=== PATIENT | male | born 1990 | race Caucasian/White ===

== ENCOUNTER 2017-06-28 14:06 | Emergency (ER) | payer BC, OTHER ==
--- NOTE | 2017-06-28 14:10 | PDOC ---
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 The patient states he was moving a love seat yesterday when he felt a pull to his lower back causing him to hunch over secondary to the pain. The patient reports taking Advil before bed last night with little relief of pain. He states he was concerned when his pain was less diffuse when he woke up today. He states the pain was diffuse to his lower back yesterday, however, reports the pain has remained to the lumbar region, however, more prominent to his midline with radiation to his left lower back today. He reports his pain is a constant 6/10 in severity and exacerbated when he has to get up from bending or sitting down. The patient states he finds walking around alleviates his pain slightly. He denies numbness, tingling, or weakness to to his distal lower extremities. He denies chest pain, shortness of breath, headache and dizziness. He denies fever, chills, nausea, vomit, diarrhea and constipation. He denies dysuria, frequency, urgency and hematuria. He denies urinary or fecal incontinence. Allergies: NKDA Past surgical history: none reported Social history: Pt denies tobacco use <Berta Rowley - Last Filed: 06/28/17 15:24> <Yordan Delgado - Last Filed: 06/28/17 15:26> - General Chief Complaint: Injury Stated Complaint: LOWER BACK PAIN Time Seen by Provider: 06/28/17 14:09 Past History <Berta Rowley - Last Filed: 06/28/17 15:24> - Immunization History Immunization Up to Date: Yes - Suicide/Smoking/Psychosocial Hx Smoking Status: No Smoking History: Never smoked Number of Cigarettes Smoked Daily: 0 Hx Alcohol Use: No Substance Use Type: None <Yordan Delgado - Last Filed: 06/28/17 15:26> - Past Medical History Allergies/Adverse Reactions: Allergies Allergy/AdvReac Type Severity Reaction Status Date / Time No Known Allergies Allergy Verified 06/28/17 14:07 Home Medications: Ambulatory Orders No Home Medications 0 dose .ROUTE UTDICT 02/21/13 Cyclobenzaprine HCl [Flexeril] 10 mg PO TID #15 tablet 06/28/17 Ibuprofen 800 mg PO TID #20 tablet 06/28/17 Trauma Specific PMHX - Complaint Specific PMHX Arthritis: No Back Injury: No Neck Injury: No Hx Sacro Iliac Joint Dysfunction: No <Yordan Delgado - Last Filed: 06/28/17 15:26> Review of Systems - Review of Systems Able to Perform ROS?: Yes Comments:: 06/28/17 14:30 CONSTITUTIONAL: Absent: fever, chills, diaphoresis, generalized weakness, malaise, loss of appetite HEENT: Absent: rhinorrhea, nasal congestion, throat pain, throat swelling, difficulty swallowing, mouth swelling, ear pain, eye pain, visual Changes CARDIOVASCULAR: Absent: chest pain, syncope, palpitations, irregular heart rate, lightheadedness , peripheral edema RESPIRATORY: Absent: cough, shortness of breath, dyspnea with exertion, orthopnea, wheezing, stridor, hemoptysis GASTROINTESTINAL: Absent: abdominal pain, abdominal distension, nausea, vomiting, diarrhea, constipation, melena, hematochezia GENITOURINARY: Absent: dysuria, frequency, urgency, hesitancy, hematuria, flank pain, genital pain MUSCULOSKELETAL: (+) low back pain. Absent: arthralgia, joint swelling SKIN: Absent: rash, itching, pallor HEMATOLOGIC/IMMUNOLOGIC: Absent: easy bleeding, easy bruising, lymphadenopathy, frequent infections ENDOCRINE: Absent: unexplained weight gain, unexplained weight loss, heat intolerance, cold intolerance NEUROLOGIC: Absent: headache, focal weakness or paresthesia, dizziness, unsteady gait, seizure, mental status changes, bladder or bowel incontinence PSYCHIATRIC: Absent: anxiety, depression, suicidal or homicidal ideation, hallucinations <Berta Rowley - Last Filed: 06/28/17 15:24> *Physical Exam - Vital Signs Last Vital Signs Temp Pulse Resp BP Pulse Ox 98.3 F 90 20 143/93 96 06/28/17 14:07 06/28/17 14:07 06/28/17 14:07 06/28/17 14:07 06/28/17 14:07 - Physical Exam Comments: 06/28/17 14:31 GENERAL: Well developed, well nourished. Awake and alert. No acute distress. HEENT: Normocephalic, atraumatic. PERRLA, EOMI. No conjunctival pallor. Sclera are non- icteric. Moist mucous membranes. Oropharynx is clear. NECK: Supple. Full ROM. No JVD. Carotid pulses 2+ and symmetric, without bruits. No thyromegaly. No lymphadenopathy. CARDIOVASCULAR: Regular rate and rhythm. No murmurs, rubs, or gallops. Distal pulses are 2+ and symmetric. PULMONARY: No evidence of respiratory distress. Lungs clear to auscultation bilaterally. No wheezing, rales or rhonchi. ABDOMINAL: Soft. Non-tender. Non-distended. No rebound or guarding. No organomegaly. Normoactive bowel sounds. MUSCULOSKELETAL (+) straightening of the normal lumbar lordosis with b/l paravertebral muscle spasm. No point tenderness or deformity of the vertebral bodies. Straight leg raising is negative. No muscle weakness in either lower extremity. Full pulses and no sensory deficits to the lower extremities. Normal range of motion at all joints. No midline tenderness or bony deformities. No CVA tenderness. EXTREMITIES: No cyanosis. No clubbing. No edema. No calf tenderness. SKIN: Warm and dry. Normal capillary refill. No rashes. No jaundice. NEUROLOGICAL: Alert, awake, appropriate. Cranial nerves 2-12 intact. No motor deficits in the upper extremities and lower extremities. Normoreflexic in the upper and lower extremities. Normal speech. Gait is normal without ataxia. PSYCHIATRIC: Cooperative. Good eye contact. Appropriate mood and affect. <Berta Rowley - Last Filed: 06/28/17 15:24> Medical Decision Making - Medical Decision Making 06/28/17 15:21 Patient with low back strain. No radicular symptoms. Normal bowel and bladder function. Normal exam except for signs of muscle spasm in the LS spine. Symptomatic treatment and follow-up as needed. Fully ambulatory and in no severe pain or other distress upon discharge to follow-up as directed <Yordan Delgado - Last Filed: 06/28/17 15:26> *DC/Admit/Observation/Transfer - Attestations Scribe Attestion: 06/28/17 14:32 Documentation prepared by Berta Rowley, acting as medical record administrator for Yordan Chaudhry MD <Berta Rowley - Last Filed: 06/28/17 15:24> - Discharge Dispostion Admit: No <Yordan Delgado - Last Filed: 06/28/17 15:26> Diagnosis at time of Disposition: Pain, low back Qualifiers: Chronicity: acute Back pain laterality: left Sciatica presence: without sciatica Qualified Code(s): M54.5 - Low back pain - Discharge Dispostion Disposition: HOME Condition at time of disposition: Improved - Prescriptions Prescriptions: Cyclobenzaprine HCl [Flexeril] 10 mg PO TID #15 tablet Ibuprofen 800 mg PO TID #20 tablet - Referrals Referrals: Javier Blackwell MD [Staff Physician] - 1 week - Patient Instructions Printed Discharge Instructions: DI for Low Back Pain - Post Discharge Activity Forms/Work/School Notes: Back to Work
[2017-06-28 14:26] VITALS: BP 143/93; PULSE 90; TEMP 98.3; BMI 32.5
[2017-06-28] MEDS ORDERED: KETOROLAC TROMETHAMINE 60 MG/2 ML VIAL IM ONE (14:39)
[2017-06-28] MEDS ORDERED: CYCLOBENZAPRINE HCL 10 MG TABLET (FP) PO ONE (14:39)
[2017-06-28] MEDS ORDERED: KETOROLAC TROMETHAMINE 60 MG/2 ML VIAL ONE (14:56)
[2017-06-28] MEDS ORDERED: CYCLOBENZAPRINE HCL 10 MG TABLET (FP) ONE (14:57)
== END 2017-06-28 15:20 | disposition home or self-care (01) ==
LOC: FER 14:06
PROC: 3E0233Z Introduction of Anti-inflammatory into Muscle, Percutaneous Approach (ICD-10-PCS; principal; 2017-06-28)
DX: M54.5 Low back pain (principal)
CPT/HCPCS: 99281-25

== ENCOUNTER 2017-08-16 10:55 | Observation (INO) | payer BC, OTHER ==
[2017-08-16 11:02] VITALS: BMI 32.0
[2017-08-16] MEDS ORDERED: METOPROLOL TARTRATE 5 MG/5 ML VIAL ONE (11:08)
[2017-08-16] MEDS ORDERED: METOPROLOL TARTRATE 5 MG/5 ML VIAL IVPUSH ONE (11:16)
--- NOTE | 2017-08-16 11:35 | PDOC ---
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 Patient states a few minutes prior to the onset he smelled a noxious fume and then minutes later developed a feeling of uneasiness followed by palpitations. Patient denies cardiac history, thyroid disorders, drug use, heat or cold intolerance, weight change, recent surgery, smoking history, recent change in diet or recent illness. Patient denies chest pain, shortness of breath, nausea, or dizziness since onset. Presenting Symptoms: Other (palpitations) Timing/Duration: reports: constant Severity/Quality: reports: mild Chest Pain Radiation: reports: no radiation Prior Chest Pain/Cardiac Workup: reports: No prior chest pain Modifying Factors: improves with: movement (improve with standing), other Beta Rosibel indicated at this time? (Core Measure): Yes Associated Symptoms: Yes: Palpitations Past History - Travel Traveled outside of the country in the last 30 days: No - Past Medical History Allergies/Adverse Reactions: Allergies Allergy/AdvReac Type Severity Reaction Status Date / Time No Known Allergies Allergy Verified 08/16/17 11:00 Home Medications: Ambulatory Orders No Home Medications 0 dose .ROUTE UTDICT 02/21/13 COPD: No - Immunization History Immunization Up to Date: Yes - Suicide/Smoking/Psychosocial Hx Smoking Status: No Smoking History: Never smoked Have you smoked in the past 12 months: No Number of Cigarettes Smoked Daily: 0 Information on smoking cessation initiated: No Hx Alcohol Use: No Drug/Substance Use Hx: No Substance Use Type: None Patient Lives Alone: No Lives with/in: parents Review of Systems - Review of Systems Able to Perform ROS?: Yes Constitutional: No: Symptoms Reported HEENTM: No: Symptoms Reported Respiratory: No: Symptoms reported Cardiac (ROS): Yes: Palpitations. No: Chest Tightness ABD/GI: No: Symptoms Reported : No: Symptoms Reported Musculoskeletal: No: Symptoms Reported Integumentary: No: Symptoms Reported Neurological: No: Symptoms reported Endocrine: No: Symptoms Reported Hematologic/Lymphatic: No: Symptoms Reported *Physical Exam - Vital Signs Last Vital Signs Temp Pulse Resp BP Pulse Ox 97.8 F 77 18 109/82 100 08/16/17 11:01 08/16/17 12:30 08/16/17 12:30 08/16/17 12:30 08/16/17 12:30 - Physical Exam General Appearance: Yes: Nourished, Appropriately Dressed. No: Apparent Distress HEENT: positive: EOMI, EMMANUELLE, Pharynx Normal. negative: Pale Conjunctivae Neck: positive: Normal Thyroid, Supple Respiratory/Chest: positive: Lungs Clear, Normal Breath Sounds. negative: Respiratory Distress Cardiovascular: positive: Tachycardia. negative: Murmur Vascular Pulses: Dorsalis-Pedis (R): 2+, Doralis-Pedis (L): 2+ Gastrointestinal/Abdominal: positive: Soft. negative: Tenderness Integumentary: positive: Normal Color, Warm, Clammy Neurologic: positive: Normal Mood/Affect (mildly anxious), Motor Strength 5/5 ( ambulatory) Deep Tendon Reflexes: Knee (L): 2+, Knee (R): 2+ Heart Score/ECG Review - History History: Slightly suspicious - Electrocardiogram EKG: Normal - Age Age: </= 45 - Risk Factors Based on the list above the patient has:: No risk factors known - Troponin Troponin: </= normal limit - Score Heart Score - Total: 0 #2 General ECG Interpretation: Sinus Rhythm (rate 73, nsr, No st elevation or depression noted) - ECG Impressions Tachycardia: Atrial Flutter (rate 165.) ED Treatment Course - LABORATORY CBC & Chemistry Diagram: 08/16/17 11:30 08/16/17 11:30 - ADDITIONAL ORDERS Additional order review: Laboratory Results 08/16/17 08/16/17 08/16/17 11:54 11:41 11:41 PT with INR 10.50 INR 0.93 Carboxyhemoglobin 2.1 H Sodium Potassium Chloride Carbon Dioxide Anion Gap BUN Creatinine Creat Clearance w eGFR Random Glucose Calcium Total Bilirubin AST ALT Alkaline Phosphatase Creatine Kinase Creatine Kinase Index CK-MB (CK-2) Troponin I Total Protein Albumin TSH 1.58 08/16/17 11:30 PT with INR INR Carboxyhemoglobin Sodium 137 Potassium 3.8 Chloride 102 Carbon Dioxide 27 Anion Gap 8 BUN 18 Creatinine 1.2 D Creat Clearance w eGFR > 60 Random Glucose 92 Calcium 9.2 Total Bilirubin 0.7 AST 36 D ALT 47 D Alkaline Phosphatase 76 Creatine Kinase 431 H Creatine Kinase Index 0.4 CK-MB (CK-2) 2.101 Troponin I < 0.02 Total Protein 8.3 H Albumin 4.4 TSH 08/16/17 11:30 RBC 5.59 MCV 90.5 MCHC 33.3 RDW 12.9 MPV 9.3 Neutrophils % 56.7 Lymphocytes % 33.8 D Monocytes % 8.1 Eosinophils % 1.1 Basophils % 0.3 - RADIOLOGY Radiology Studies Ordered: Category Date Time Status CHEST X-RAY PORTABLE* [RAD] Stat Radiology 08/16/17 11:16 Completed - Medications Given in the ED: ED Medications Discontinued Medications Generic Name Dose Route Start Last Admin Trade Name Freq PRN Reason Stop Dose Admin Metoprolol Tartrate 5 mg 08/16/17 11:16 08/16/17 11:20 Lopressor Injection - IVPUSH 08/16/17 11:17 5 mg ONCE ONE Administration Medical Decision Making - Critical Care Time Total Critical Care Time (minutes): 45 Critical Care Statement: The care of this patient involved high complexity decision making to prevent further life threatening deterioration of the patient 's condition and/or to evaluate & treat vital organ system(s) failure or risk of failure. 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 Patient states this assisted with moving of body near the morgue on [address] and had inhaled noxious fumes minutes prior to onset. Patient arrives tachycardic mildly anxious, and slightly diaphoretic to his arms. Patient was immediately placed on surveillance system monitor. Patient instructed to bear down to perform vasovagal maneuver but continued to be in a flutter in the 160s. I placed a #18-gauge needle into the patient's left antecubital labs were drawn immediately and patient was administered 5 mg of Lopressor IV push at 1108. Patient within 4 minutes went to normal sinus rhythm with a rate of 85. Patient intermittently since administration of Lopressor will go into sinus bradycardia at 45 with complaints of mild lethargy. Patient without intervention will return to normal sinus rhythm anywhere from mid 70s to mid 80s. Patient has no complaints presently. Cardiac workup including TSH was sent. Patient also remains on 2 L of nasal cannula satting at 100%. A carboxyhemoglobin was also sent secondary to the noxious fume complaint upon onset. 08/16/17 13:18 Laboratory Tests 08/16/17 08/16/17 08/16/17 11:30 11:30 11:41 WBC 8.0 Hgb 16.9 Hct 50.6 H Plt Count 236 Neutrophils % 56.7 INR Carboxyhemoglobin Sodium 137 Potassium 3.8 Chloride 102 Carbon Dioxide 27 Anion Gap 8 BUN 18 Creatinine 1.2 D Random Glucose 92 Calcium 9.2 Total Bilirubin 0.7 Creatine Kinase 431 H Troponin I < 0.02 Total Protein 8.3 H TSH 1.58 08/16/17 08/16/17 11:41 11:54 WBC Hgb Hct Plt Count Neutrophils % INR 0.93 Carboxyhemoglobin 2.1 H Sodium Potassium Chloride Carbon Dioxide Anion Gap BUN Creatinine Random Glucose Calcium Total Bilirubin Creatine Kinase Troponin I Total Protein TSH Patient's heart rate continues to fluctuate anywhere from 48-82. BP within normal limits. Patient remains asymptomatic and has no complaints presently. Case discussed with hospitalist and will admit to telemetry out. Consult also placed for Dr. Edgar program director group work and echocardiogram was ordered. 08/16/17 13:[address] Edgar and states will consult either later this evening or first thing tomorrow morning and will review echo. 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 hr 50-80s. 08/16/17 16:51 Laboratory Tests 08/16/17 16:00 Troponin I < 0.02 *DC/Admit/Observation/Transfer Diagnosis at time of Disposition: New onset atrial flutter - Discharge Dispostion Admit: Yes - Referrals - Patient Instructions - Post Discharge Activity
[2017-08-16 12:02] LABS: BASO % 0.3 % (0-2.0); EOS % 1.1 % (0-4.5); HEMATOCRIT 50.6 % (35.4-49); HEMOGLOBIN 16.9 GM/dL (11.7-16.9); LYMPH % 33.8 % (8-40); MCH 30.2 pg (25.7-33.7); MCHC 33.3 g/dl (32.0-35.9); MEAN CELL VOLUME 90.5 fl (80-96); MEAN PLT VOLUME 9.3 fl (7.5-11.1); MONO % 8.1 % (3.8-10.2); NEUT % 56.7 % (42.8-82.8); PLATELET COUNT 236 K/MM3 (134-434); RBC 5.59 M/mm3 (4.00-5.60); RDW 12.9 % (11.9-15.9)
[2017-08-16 12:14] LABS: ALBUMIN 4.4 g/dl (3.4-5.0); ANION GAP 8 (8-16); BILIRUBIN,TOTAL 0.7 mg/dL (0.2-1.0); BLOOD UREA NITROGEN 18 mg/dL (7-18); CALCIUM 9.2 mg/dL (8.5-10.1); CHLORIDE 102 mmol/L (98-107); CO2 27 mmol/L (21-32); CREATININE 1.2 mg/dL (0.7-1.3); GLUCOSE,RANDOM 92 mg/dL (74-106); POTASSIUM 3.8 mmol/L (3.5-5.1); SGOT/AST 36 U/L (15-37); SGPT/ALT 47 U/L (12-78); SODIUM 137 mmol/L (136-145); TOT PROT 8.3 g/dl (6.4-8.2)
[2017-08-16 12:17] LABS: ALK PHOS 76 U/L (45-117)
[2017-08-16 13:08] LABS: INR 0.93 (0.82-1.09); PROTHROMBIN TIME (PATIENT) 10.5 SEC (9.98-11.88)
--- NOTE | 2017-08-16 15:00 | HP ---
CHIEF COMPLAINT: palpitations PCP: Rafi HISTORY OF PRESENT ILLNESS: This is a 27-year-old male without significant past medical history presents to emergency department with sudden onset of palpitations while walking slowly. On arrival to the ED patient found a heart rate in the 170s. Patient states approximately one hour prior to feeling palpitations here brief episode of dizziness while at rest. Patient states he was walking the [place]ay where there was a noxious gas smell at the time the palpitations started. He noticed a time then released feeling diaphoretic. He denies any fevers, chills, chest pain, shortness of breath, abdominal pain, nausea, vomiting. ER course was notable for: (1) EKG- Aflutter at 165 (2) carboxyhemoglobin- 2.1 Recent Travel: denies PAST MEDICAL HISTORY: see HPI PAST SURGICAL HISTORY: see HPI Social History: Smoking: denies Alcohol: denies Drugs: denies Family History: Allergies No Known Allergies Allergy (Verified 08/16/17 11:00) HOME MEDICATIONS: Home Medications Medication Instructions Recorded No Home Medications 0 dose .ROUTE UTDICT 02/21/13 REVIEW OF SYSTEMS CONSTITUTIONAL: Present- diaphoresis Absent: fever, chills, generalized weakness, malaise, loss of appetite, weight change HEENT: Absent: rhinorrhea, nasal congestion, throat pain, throat swelling, difficulty swallowing, mouth swelling, ear pain, eye pain, visual changes CARDIOVASCULAR: Present- palpitations Absent: chest pain, syncope, irregular heart rate, lightheadedness, peripheral edema RESPIRATORY: Absent: cough, shortness of breath, dyspnea with exertion, orthopnea, wheezing, stridor, hemoptysis GASTROINTESTINAL: Absent: abdominal pain, abdominal distension, nausea, vomiting, diarrhea, constipation, melena, hematochezia GENITOURINARY: Absent: dysuria, frequency, urgency, hesitancy, hematuria, flank pain, genital pain MUSCULOSKELETAL: Absent: myalgia, arthralgia, joint swelling, back pain, neck pain SKIN: Absent: rash, itching, pallor HEMATOLOGIC/IMMUNOLOGIC: Absent: easy bleeding, easy bruising, lymphadenopathy, frequent infections ENDOCRINE: Absent: unexplained weight gain, unexplained weight loss, heat intolerance, cold intolerance NEUROLOGIC: Absent: headache, focal weakness or paresthesias, dizziness, unsteady gait, seizure, mental status changes, bladder or bowel incontinence PSYCHIATRIC: Absent: anxiety, depression, suicidal or homicidal ideation, hallucinations. PHYSICAL EXAMINATION Vital Signs - 24 hr 08/16/17 08/16/17 08/16/17 11:01 11:20 11:30 Temperature 97.8 F Pulse Rate 158 H Pulse Rate [ 46 L Apical] Respiratory 16 18 Rate Blood Pressure 135/51 138/89 Blood Pressure 139/87 [Right Arm] O2 Sat by Pulse 100 100 Oximetry (%) 08/16/17 08/16/17 08/16/17 11:55 12:00 12:02 Temperature Pulse Rate Pulse Rate [ 79 Apical] Respiratory 20 Rate Blood Pressure Blood Pressure 129/86 [Right Arm] O2 Sat by Pulse 100 99 100 Oximetry (%) 08/16/17 12:30 Temperature Pulse Rate Pulse Rate [ 77 Apical] Respiratory 18 Rate Blood Pressure Blood Pressure 109/82 [Right Arm] O2 Sat by Pulse 100 Oximetry (%) GENERAL: Awake, alert, and fully oriented, in no acute distress. HEAD: Normal with no signs of trauma. EYES: Pupils equal, round and reactive to light, extraocular movements intact, sclera anicteric, conjunctiva clear. No lid lag. EARS, NOSE, THROAT: Ears normal, nares patent, oropharynx clear without exudates. Moist mucous membranes. NECK: Normal range of motion, supple without lymphadenopathy, JVD, or masses. LUNGS: Breath sounds equal, clear to auscultation bilaterally. No wheezes, and no crackles. No accessory muscle use. HEART: Regular rate and rhythm, normal S1 and S2 without murmur, rub or gallop. ABDOMEN: Soft, nontender, not distended, normoactive bowel sounds, no guarding, no rebound, no masses. No hepatomegaly or splenomegaly. MUSCULOSKELETAL: Normal range of motion at all joints. No bony deformities or tenderness. No CVA tenderness. UPPER EXTREMITIES: 2+ pulses, warm, well-perfused. No cyanosis. No clubbing. No peripheral edema. LOWER EXTREMITIES: 2+ pulses, warm, well-perfused. No calf tenderness. No peripheral edema. NEUROLOGICAL: Cranial nerves II-XII intact. Normal speech. Normal gait. PSYCHIATRIC: Cooperative. Good eye contact. Appropriate mood and affect. SKIN: Warm, dry, normal turgor, no rashes or lesions noted, normal capillary refill. Laboratory Results - last 24 hr 08/16/17 08/16/17 08/16/17 11:30 11:30 11:41 WBC 8.0 RBC 5.59 Hgb 16.9 Hct 50.6 H MCV 90.5 MCH 30.2 MCHC 33.3 RDW 12.9 Plt Count 236 MPV 9.3 Neutrophils % 56.7 Lymphocytes % 33.8 D Monocytes % 8.1 Eosinophils % 1.1 Basophils % 0.3 PT with INR INR Carboxyhemoglobin Sodium 137 Potassium 3.8 Chloride 102 Carbon Dioxide 27 Anion Gap 8 BUN 18 Creatinine 1.2 D Creat Clearance w eGFR > 60 Random Glucose 92 Calcium 9.2 Total Bilirubin 0.7 AST 36 D ALT 47 D Alkaline Phosphatase 76 Creatine Kinase 431 H Creatine Kinase Index 0.4 CK-MB (CK-2) 2.101 Troponin I < 0.02 Total Protein 8.3 H Albumin 4.4 TSH 1.58 08/16/17 08/16/17 11:41 11:54 WBC RBC Hgb Hct MCV MCH MCHC RDW Plt Count MPV Neutrophils % Lymphocytes % Monocytes % Eosinophils % Basophils % PT with INR 10.50 INR 0.93 Carboxyhemoglobin 2.1 H Sodium Potassium Chloride Carbon Dioxide Anion Gap BUN Creatinine Creat Clearance w eGFR Random Glucose Calcium Total Bilirubin AST ALT Alkaline Phosphatase Creatine Kinase Creatine Kinase Index CK-MB (CK-2) Troponin I Total Protein Albumin TSH ASSESSMENT/PLAN: A: 27 yo man without medical history admitted with aflutter at 165. P: New onset Aflutter - broke with Metoprolol 5mg IVP - currently NSR at 62 - serial troponin - echo pending - telemetry - cards consult F/E/N - low Na diet - replete prn PPX -OOB - sqh Dispo- requires observation of acute medical conditions
--- NOTE | 2017-08-16 15:28 | CON.CARD ---
Consult Consult Specialty:: cardiology Reason for Consultation:: palpitations; new-onset AF/flutter - History of Present Illness Chief Complaint: Pt is presently asymptomatic. History of Present Illness: This is a 27-year-old male with no past medical history with sudden onset of palpitations which he states began after assisting with removing a body near the morgue. Patient states a few minutes prior to the onset he smelled a noxious fume and then minutes later developed a feeling of uneasiness followed by palpitations. Patient denies cardiac history, thyroid disorders, drug use, heat or cold intolerance, weight change, recent surgery, smoking history, recent change in diet or recent illness. Patient denies chest pain, shortness of breath, nausea, or dizziness since onset. Presenting Symptoms: Other (palpitations) Timing/Duration: reports: constant Severity/Quality: reports: mild Chest Pain Radiation: reports: no radiation Prior Chest Pain/Cardiac Workup: reports: No prior chest pain Modifying Factors: improves with: movement (improve with standing), other Beta Rosibel indicated at this time? (Core Measure): Yes Associated Symptoms: Yes: Palpitations Pt says his heartbeat becomes rapid when he works out at the gym, but subsides quickloy when he stops exercising, and is different in quality from that felt this episode, which occurred at rest and did not respond to efforts to slow it down by taking deep breaths, relaxing. Pt had also significantly increased caffeine intake over the past 2 weeks; he now drinks several large cups of caffeinated coffee daily, and has had poor sleeping habits, often work 12 hour shifts that may be daytime followed by several night shifts. He oftern does not sleep til 4 am, and then weeks up after only a few hours sleep. - History Source History Provided By: Patient, Family Member, Medical Record Limitations to Obtaining History: No Limitations - Past Medical History Cardio/Vascular: Yes: AFIB Pulmonary: No: Asthma Psych: Yes: Anxiety, Panic - Past Surgical History Past Surgical History: Yes: None - Alcohol/Substance Use Hx Alcohol Use: No - Smoking History Smoking history: Current some day smoker Have you smoked in the past 12 months: Yes Aproximately how many cigarettes per day: 3 - Social History Usual Living Arrangement: With Parent Home Medications - Allergies Allergies/Adverse Reactions: Allergies Allergy/AdvReac Type Severity Reaction Status Date / Time No Known Allergies Allergy Verified 08/16/17 11:00 - Home Medications Home Medications: Ambulatory Orders No Home Medications 0 dose .ROUTE UTDICT 02/21/13 Metoprolol Tartrate 12.5 mg PO BID PRN #14 tablet 08/17/17 Family Disease History - Family Disease History Family History: Denies Review of Systems - Review of Systems Constitutional: reports: No Symptoms Eyes: reports: No Symptoms HENT: reports: No Symptoms Neck: reports: No Symptoms Cardiovascular: reports: Palpitations, Shortness of Breath Respiratory: reports: SOB Gastrointestinal: reports: No Symptoms Genitourinary: reports: No Symptoms Breasts: reports: No Symptoms Reported Musculoskeletal: reports: No Symptoms Integumentary: reports: No Symptoms Neurological: reports: No Symptoms Endocrine: reports: No Symptoms Hematology/Lymphatic: reports: No Symptoms Psychiatric: reports: Anxiety, Panic - Risk Factors Known Risk Factors: Yes: Gender, Smoking Vital Signs: Vital Signs Temperature 97.8 F 08/16/17 11:01 Pulse Rate 77 08/16/17 12:30 Respiratory Rate 18 08/16/17 12:30 Blood Pressure 109/82 08/16/17 12:30 O2 Sat by Pulse Oximetry (%) 100 08/16/17 12:30 Constitutional: Yes: Anxious Eyes: Yes: WNL HENT: Yes: WNL Neck: Yes: WNL Respiratory: Yes: WNL Gastrointestinal: Yes: WNL Renal/: Yes: WNL Cardiovascular: Yes: WNL JVD: No Carotid Bruit: No PMI: Non-Displaced Heart Sounds: Yes: S1, S2 Musculoskeletal: Yes: WNL Extremities: Yes: WNL Edema: No Peripheral Pulses WNL: Yes Integumentary: Yes: WNL Neurological: Yes: WNL ...Motor Strength: WNL Psychiatric: Yes: Other (occasional anxiety/panic) - Other Data Labs, Other Data: CBC, BMP 08/16/17 11:30 08/16/17 11:30 INR, PTT INR 0.93 (0.82-1.09) 08/16/17 11:41 Troponin, BNP 08/16/17 11:30 Troponin I < 0.02 Troponin, BNP 08/16/17 11:30 Troponin I < 0.02 Imaging - Results Chest X-ray: Image Reviewed EKG: Image Reviewed (initially AFlutter; 2nd EKG NSR; normal study) Problem List - Problems (1) Generalized anxiety disorder with panic attacks Code(s): F41.1 - GENERALIZED ANXIETY DISORDER; F41.0 - PANIC DISORDER [EPISODIC PAROXYSMAL ANXIETY] (2) Transient atrial fibrillation or flutter Assessment/Plan: AF returned to NSR after dose of IV metoprolol. [id number] score is low; no anticoagulation presently. ECHO: normal LVEF; normal chamber sizes. TBNI 0.02 x 3 For stress treadmill test; if unremarkable, may be discharged home and followed as outpatient. Will get event recorder long-term monitor if episodes return. Pt was counseled to cut down on caffeine (drinks lots of coffee, and has one or two sodas a day). Decrease weight, change diet; increase exercise. Code(s): PDX0306 -
[2017-08-16 17:07] LABS: MAGNESIUM 2.3 mg/dL (1.8-2.4)
[2017-08-16] MEDS: HEPARIN NA (PORCINE) 5,000 UNITS/ML 1ML VIAL SQ SCH (21:09)
[2017-08-16 23:18] LABS: MAGNESIUM 2.3 mg/dL (1.8-2.4)
[2017-08-17 07:27] LABS: BASO % 0.3 % (0-2.0); EOS % 2.2 % (0-4.5); HEMATOCRIT 46.9 % (35.4-49); HEMOGLOBIN 15.4 GM/dL (11.7-16.9); MCH 30.1 pg (25.7-33.7); MCHC 32.9 g/dl (32.0-35.9); MEAN CELL VOLUME 91.2 fl (80-96); MONO % 8.2 % (3.8-10.2); NEUT % 49.3 % (42.8-82.8); PLATELET COUNT 198 K/MM3 (134-434); RBC 5.14 M/mm3 (4.00-5.60); RDW 13.3 % (11.9-15.9); WHITE BLOOD COUNT 6.5 K/mm3 (4.0-10.0)
[2017-08-17 07:31] LABS: ANION GAP 10 (8-16); BLOOD UREA NITROGEN 18 mg/dL (7-18); CALCIUM 9.1 mg/dL (8.5-10.1); CHLORIDE 104 mmol/L (98-107); CO2 24 mmol/L (21-32); GLUCOSE,RANDOM 93 mg/dL (74-106); POTASSIUM 3.9 mmol/L (3.5-5.1); SODIUM 138 mmol/L (136-145)
[2017-08-17 07:33] LABS: CREATININE 0.9 mg/dL (0.7-1.3)
--- NOTE | 2017-08-17 10:28 | EKG ---
Test Reason : Blood Pressure : / mmHG Vent. Rate : 073 BPM Atrial Rate : 073 BPM P-R Int : 144 ms QRS Dur : 088 ms QT Int : 404 ms P-R-T Axes : 053 073 020 degrees QTc Int : 445 ms NORMAL SINUS RHYTHM NORMAL ECG Confirmed by NOÉ CALIXTO MD ([id number]) on 08/17/2017 10:28:12 AM Referred By: Confirmed By:NOÉ CALIXTO MD
[2017-08-17] MEDS: HEPARIN NA (PORCINE) 5,000 UNITS/ML 1ML VIAL SQ SCH (10:50)
--- NOTE | 2017-08-17 12:45 | TRE ---
Protocol Name : ARI Max Work Load (METS*10) : 109 Time In Exercise Phase : 00:09:32 Max. Systolic BP : 160 mmHg Max Diastolic BP : 80 mmHg Max Heart Rate : 169 BPM Max Predicted Heart Rate : 194 BPM Attending Physician : DR. CALIXTO Reason For Termination : Target Heart Rate Achieved Reason for Test : P AFIB Stress Protocol : ARI Rest HR : 72 BPM PeakEx METs : 10.9 METS Recovery ECG Response (OLD) : Diagnosis : The patient completed 9:32 of a standard Ari Protocol achieving a workload of 11 METS. The resting heart rate of 61bpm casper to a peak of 169bpm representing 87% of age predicted maximum heart rate. The baseline blood pressure of 128/68 casper to a peak of 160/80; the test was stopped due to achievement of the target heart rate. The baseline ECG showed NSR at 62bpm with atrial premature contractions. During stress occasional APCs with aberrancy were noted. There were no arrhythmias, no symptoms and no ischemic ECG changes. Conclusion: Normal/negative stress ECG. No arrhythmias. Good exercise capacity. Normal blood pressure response to exercise. Confirmed by NOÉ CALIXTO MD ([id number]) on 08/17/2017 12:44:43 PM
[2017-08-17 14:19] VITALS: BP 148/76; PULSE 76; TEMP 97.7
--- NOTE | 2017-08-17 15:16 | EKG ---
Test Reason : Blood Pressure : / mmHG Vent. Rate : 067 BPM Atrial Rate : 067 BPM P-R Int : 138 ms QRS Dur : 088 ms QT Int : 388 ms P-R-T Axes : 054 075 015 degrees QTc Int : 409 ms NORMAL SINUS RHYTHM POSSIBLE LEFT ATRIAL ENLARGEMENT WHEN COMPARED WITH ECG OF 16-AUG-2017 15:52, NO SIGNIFICANT CHANGE WAS FOUND Confirmed by NOÉ CALIXTO MD ([id number]) on 08/17/2017 3:15:59 PM Referred By: Confirmed By:NOÉ CALIXTO MD
--- NOTE | 2017-08-17 15:22 | DS ---
Physical Exam: SUBJECTIVE: Patient seen and examined. He denies palpitations, he feels well, he slept well. OBJECTIVE: Vital Signs Period Temp Pulse Resp BP Sys/James Pulse Ox Last 24 Hr 97.3 F-98.2 F 60-91 14-20 102-150/45-86 95-100 PE Neuro: alert, awake, cn 2-12intact Pulm: CTAB CV: s1 s2 rrr no mrg Abd: s nt nd +bs Ext: Warm no le edema Laboratory Results - last 24 hr 08/16/17 08/16/17 08/17/17 16:00 22:00 06:00 WBC 6.5 RBC 5.14 Hgb 15.4 Hct 46.9 MCV 91.2 MCH 30.1 MCHC 32.9 RDW 13.3 Plt Count 198 MPV 9.0 Neutrophils % 49.3 Lymphocytes % 40.0 Monocytes % 8.2 Eosinophils % 2.2 D Basophils % 0.3 Sodium Potassium Chloride Carbon Dioxide Anion Gap BUN Creatinine Random Glucose Calcium Magnesium 2.3 2.3 Creatine Kinase 324 H Creatine Kinase Index 0.5 CK-MB (CK-2) 1.806 Troponin I < 0.02 < 0.02 08/17/17 06:00 WBC RBC Hgb Hct MCV MCH MCHC RDW Plt Count MPV Neutrophils % Lymphocytes % Monocytes % Eosinophils % Basophils % Sodium 138 Potassium 3.9 Chloride 104 Carbon Dioxide 24 Anion Gap 10 BUN 18 Creatinine 0.9 D Random Glucose 93 Calcium 9.1 Magnesium Creatine Kinase Creatine Kinase Index CK-MB (CK-2) Troponin I HOSPITAL COURSE: Date of Admission:08/16/17 Date of Discharge: 08/17/17 Minutes to complete discharge: 37 Discharge Summary Reason For Visit: NEW ONSET ATRIAL FLUTTER Current Active Problems New onset atrial flutter (Acute) Hospital Course: Initial Hospital Course: Briefly, this 27 year old male without significant past medical history presented with sudden onset of palpitations while walking slowly. On arrival to the ED patient found a heart rate in the 170s. One hr to feeling palpitations here he had a brief episode of dizziness while at rest. Patient states he was walking the jay where there was a noxious gas smell at the time the palpitations started. He noticed a time then released feeling diaphoretic. He described the palpitations as working out or running hard and then suddenly stopping and your heart pounding as you've exerted yourself, however he was not exercising. Denies family hx of heart disease Subsequent Hospital Course/Progress Note/DC summary: 1. PAF - Returned to NSR after x1 dose of metoprolol 5mg IV - No further events on tele nor additional doses needed - Exercise stress no arrhythmia, good performance - Home with PRN lopressor 12.5mg BID as needed with instruction to see ED immediately - For outpt follow up with cardiology for EP study - Pt aware and agrees to above plan, referral information give Dispo: - Home Condition: Stable - Instructions Diet, Activity, Other Instructions: Please return to the ED for any new, persistent, or worsening symptoms. Follow up with you PCP in 1 week Cardiology follow up in 1 week for further EP evaluation Take lopressor as needed for elevated HR and after go to ED and seek medical attention Referrals: Len Hammer MD [Primary Care Provider] - Buddy Edgar MD [Staff Physician] - Disposition: HOME - Home Medications Comprehensive Discharge Medication List: Ambulatory Orders No Home Medications 0 dose .ROUTE UTDICT 02/21/13 Metoprolol Tartrate 12.5 mg PO BID PRN #14 tablet 08/17/17 This patient is new to me today: Yes Date on this admission: 08/17/17 Emergency Visit: Yes ED Registration Date: 08/16/17 Care time: The patient presented to the Emergency Department on the above date and was hospitalized for further evaluation of their emergent condition. Critical Care patient: No - Discharge Referral Referred to [facility] Med P.C.: No
--- NOTE | 2017-08-21 15:18 | EKG ---
Test Reason : Blood Pressure : / mmHG Vent. Rate : 044 BPM Atrial Rate : 044 BPM P-R Int : 140 ms QRS Dur : 094 ms QT Int : 406 ms P-R-T Axes : 055 073 035 degrees QTc Int : 347 ms MARKED SINUS BRADYCARDIA POSSIBLE LEFT ATRIAL ENLARGEMENT ABNORMAL ECG WHEN COMPARED WITH ECG OF 16-AUG-2017 10:57, SINUS RHYTHM HAS REPLACED ATRIAL FLUTTER VENT. RATE HAS DECREASED BY [address] NO LONGER DEPRESSED IN INFERIOR LEADS ST NO LONGER DEPRESSED IN ANTEROLATERAL LEADS T WAVE INVERSION NO LONGER EVIDENT IN INFERIOR LEADS NONSPECIFIC T WAVE ABNORMALITY NO LONGER EVIDENT IN LATERAL LEADS Confirmed by Franck Colón MD ([id number]) on 08/21/2017 3:17:45 PM Referred By: Confirmed By:Franck Colón MD
--- NOTE | 2017-08-22 12:15 | EKG ---
Test Reason : Blood Pressure : / mmHG Vent. Rate : 165 BPM Atrial Rate : 312 BPM P-R Int : 000 ms QRS Dur : 108 ms QT Int : 242 ms P-R-T Axes : 258 071 -68 degrees QTc Int : 400 ms ATRIAL FLUTTER WITH VARIABLE A-V BLOCK ABNORMAL ECG WHEN COMPARED WITH ECG OF 16-MAR-2014 20:17, SIGNIFICANT CHANGES HAVE OCCURRED Confirmed by ZACHARY WILKERSON, SHERIF ([id number]) on 08/22/2017 12:15:02 PM Referred By: Confirmed By:SHERIF SHARMA MD
== END 2017-08-17 15:58 | disposition home or self-care (01) ==
LOC: JER 10:55 → JERBED 13:41 → J4S 17:00
PROVIDERS: ADMIT Hospitalist; ATTEND Nurse Practitioner Acute Care
PROC: 3E033GC Introduction of Other Therapeutic Substance into Peripheral Vein, Percutaneous Approach (ICD-10-PCS; principal; 2017-08-16)
PROC: 3E013GC Introduction of Other Therapeutic Substance into Subcutaneous Tissue, Percutaneous Approach (ICD-10-PCS; 2017-08-16)
DX: I48.92 Unspecified atrial flutter (principal); F17.210 Nicotine dependence, cigarettes, uncomplicated
CPT/HCPCS: 36415; 71045-TC; 80048; 80053; 82375; 82550; 82553; 83735; 84443; 84484; 85025; 85610; 93005; 93010; 93017; 93018; 93306-TC; 99285-25; G0378; J1644

== ENCOUNTER 2017-12-05 11:31 | Emergency (ER) | payer OTHER, BC ==
[2017-12-05 11:42] VITALS: BP 127/86; PULSE 94; TEMP 98.4; BMI 32.0
[2017-12-05] MEDS ORDERED: DIPHTH,PERTUSS(ACELL),TET 0.5 ML DISP.SYRIN IM ONE (11:55)
--- NOTE | 2017-12-05 11:55 | PDOC ---
History of Present Illness - General Chief Complaint: Puncture Wound Stated Complaint: PUNCTURE TO BOTTOM OF RIGHT FOOT Time Seen by Provider: 12/05/17 11:37 - History of Present Illness Initial Comments: 12/05/17 12:02 Chief complaint: Foot injury History of present illness: Patient stepped on a nail, which punctured his boots all and the skin of his right foot. No pain or difficulty ambulating. Review of systems: No fall. No pain at the site. No distal numbness tingling pain or weakness Past medical history: Healthy male, and no active medical or surgical problems Social/family history reviewed and noncontributory Physical exam: Alert oriented well-developed well-nourished no acute distress cooperative Afebrile, vital signs normal Right foot: Pinpoint puncture noted of the plantar aspect of the midfoot. No swelling, erythema, or drainage. No hematoma. No palpable tenderness and no foreign body sensation to palpation Impression: Puncture wound. Superficial, minor Plan: X-ray negative for foreign body. Wound scrubbed and dressed. Tetanus booster administered. Rest and elevation recommended for 1-2 days to minimize risk of infection. Recheck immediately if increased pain or other sign of infection. Fully ambulatory and in no significant pain or other distress upon discharge to follow-up as directed Past History - Past Medical History Allergies/Adverse Reactions: Allergies Allergy/AdvReac Type Severity Reaction Status Date / Time No Known Allergies Allergy Verified 12/05/17 11:32 Home Medications: Ambulatory Orders NK [No Known Home Medication] 12/05/17 COPD: No Other medical history: BACK PROBLEMS, PALPITATIONS - Immunization History Immunization Up to Date: No - Suicide/Smoking/Psychosocial Hx Smoking Status: No Smoking History: Former smoker Have you smoked in the past 12 months: Yes Number of Cigarettes Smoked Daily: 3 If you are a former smoker, when did you quit?: 08/30 Information on smoking cessation initiated: Yes Hx Alcohol Use: No Drug/Substance Use Hx: No Substance Use Type: Alcohol *Physical Exam - Vital Signs Last Vital Signs Temp Pulse Resp BP Pulse Ox 98.4 F 94 H 16 127/86 100 12/05/17 11:32 12/05/17 11:32 12/05/17 11:32 12/05/17 11:32 12/05/17 11:32 *DC/Admit/Observation/Transfer Diagnosis at time of Disposition: Puncture wound of foot Qualifiers: Encounter type: initial encounter Laterality: right Qualified Code(s): S91.331A - Puncture wound without foreign body, right foot, initial encounter - Discharge Dispostion Disposition: HOME Condition at time of disposition: Improved Admit: No - Referrals Referrals: Jose Thrasher MD [Staff Physician] - - Patient Instructions Printed Discharge Instructions: DI for Puncture Wound Additional Instructions: Rest and elevate for 1-2 days to minimize the risk of infection. Recheck if there is increased pain, swelling, redness, drainage, or other sign of infection ER or primary physician. - Post Discharge Activity
== END 2017-12-05 13:30 | disposition home or self-care (01) ==
LOC: FER 11:31
PROC: 3E0234Z Introduction of Serum, Toxoid and Vaccine into Muscle, Percutaneous Approach (ICD-10-PCS; principal; 2017-12-05)
DX: S91.331A Puncture wound without foreign body, right foot, initial encounter (principal); X58.XXXA Exposure to other specified factors, initial encounter; Y93.89 Activity, other specified; Y92.9 Unspecified place or not applicable; Z87.891 Personal history of nicotine dependence
CPT/HCPCS: 73630-TC-RT-FY; 90715; 99281-25

== ENCOUNTER 2018-01-26 13:09 | Emergency (ER) | payer BC, OTHER ==
[2018-01-26 13:26] VITALS: BP 132/70; PULSE 84; TEMP 98.5; BMI 32.5
--- NOTE | 2018-01-26 13:53 | PDOC ---
History of Present Illness - General Chief Complaint: Injury Stated Complaint: LEFT ANKLE PAIN Time Seen by Provider: 01/26/18 13:52 History Source: Patient Exam Limitations: No Limitations - History of Present Illness Initial Comments: 01/26/18 14:05 27y M no pmhx presents with complaint of L ankle pain. Pt states he was walking around in [facility] and he stepped in an uneven sidewalk and everted his ankle. Pt notes pain is most in the lateral foot. denies any numbness/tingling. no falls o rother injuries. took motrin prior to arrival. Past History - Past Medical History Allergies/Adverse Reactions: Allergies Allergy/AdvReac Type Severity Reaction Status Date / Time No Known Allergies Allergy Verified 01/26/18 13:14 Home Medications: Ambulatory Orders Ibuprofen [Motrin -] 600 mg PO ONCE PRN 01/26/18 Cardiac Disorders: Yes (A-FIB) COPD: No - Immunization History Immunization Up to Date: No - Suicide/Smoking/Psychosocial Hx Smoking Status: No Smoking History: Former smoker Have you smoked in the past 12 months: Yes Number of Cigarettes Smoked Daily: 3 If you are a former smoker, when did you quit?: AUG 2017 Information on smoking cessation initiated: Yes 'Breaking Loose' booklet given: 01/26/18 Hx Alcohol Use: Yes (OCCASIONAL ONLY) Drug/Substance Use Hx: No Substance Use Type: Alcohol Review of Systems - Review of Systems Able to Perform ROS?: Yes Comments:: 01/26/18 14:06 Musculskelatal - +R foot pain / brusing no reported back pain, joint swelling skin - +bruising, no reported erythema, rash neurological: no reported numbness, focal weakness, tingling *Physical Exam - Vital Signs Last Vital Signs Temp Pulse Resp BP Pulse Ox 98.5 F 84 16 132/70 98 01/26/18 13:10 01/26/18 13:10 01/26/18 13:10 01/26/18 13:10 01/26/18 13:10 - Physical Exam Comments: 01/26/18 14:06 GENERAL: The patient is awake, alert, and fully oriented, Nontoxic - in no acute distress. L leg exam: No focal bony tenderness on knee, tib/fib, ankle (including no tenderness on medial/lateral melleolus), no tenderness at 5th metatarsal, + diffuse tendeness and mild ecchymosis on the lateral foot inferior to the ankle. sensation intact ED Treatment Course - RADIOLOGY Radiology Studies Ordered: Category Date Time Status ANKLE & FOOT-RIGHT* [RAD] Stat Radiology 01/26/18 13:52 Ordered Medical Decision Making - Medical Decision Making 01/26/18 14:07 suspect ankle sprain will obtain xray to r/o fx *DC/Admit/Observation/Transfer Diagnosis at time of Disposition: Ankle sprain Qualifiers: Encounter type: initial encounter Involved ligament of ankle: deltoid ligament Laterality: left Qualified Code(s): S93.422A - Sprain of deltoid ligament of left ankle, initial encounter - Discharge Dispostion Condition at time of disposition: Good Decision to Admit order: No - Referrals - Patient Instructions Printed Discharge Instructions: DI for Ankle Sprain Additional Instructions: Return to the emergency department immediately with ANY new, persistent or worsening symptoms. Use the Aircast as needed for comfort. Rest Use motrin/tylenol as needed for pain Keep your le gelevated to prevent swelling You MUST call and follow up with your doctor in 3-4 days for further evaluation of your symptoms. Results were discussed with you. Please make sure your doctor reviews the results of your emergency evaluation. If you had any xrays during your visit, it was read preliminarily by myself, a Radiologist will review it and if there are any additional findings we will call you. - Post Discharge Activity Forms/Work/School Notes: Back to Work
== END 2018-01-26 15:19 | disposition home or self-care (01) ==
LOC: FER 13:09
PROC: 2W3RX1Z Immobilization of Left Lower Leg using Splint (ICD-10-PCS; principal; 2018-01-26)
DX: S93.422A Sprain of deltoid ligament of left ankle, initial encounter (principal); X58.XXXA Exposure to other specified factors, initial encounter; Y93.89 Activity, other specified; Y92.410 Unspecified street and highway as the place of occurrence of the external cause
CPT/HCPCS: 73610-TC-LT-FY; 73630-TC-LT; 99282-25

== ENCOUNTER 2018-11-04 07:12 | Emergency (ER) | payer BC, OTHER ==
[2018-11-04 07:18] VITALS: BP 145/63; PULSE 59; TEMP 98.4; BMI 32.5
--- NOTE | 2018-11-04 07:27 | PDOC ---
History of Present Illness - General Chief Complaint: Eye Problem Stated Complaint: RIGHT EYE REDNESS Time Seen by Provider: 11/04/18 07:15 History Source: Patient Exam Limitations: No Limitations - History of Present Illness Initial Comments: 28 yo M presents with redness to R eye. He states that he ate bad [place] food 2 nights ago, then woke up in the middle of the night vomiting multiple times. He states that the day after he noticed redness in his R eye to the sclera. Denies any vision changes. No other complaints at present. Past History - Past Medical History Allergies/Adverse Reactions: Allergies Allergy/AdvReac Type Severity Reaction Status Date / Time No Known Allergies Allergy Verified 11/04/18 07:13 Home Medications: Ambulatory Orders NK [No Known Home Medication] 11/04/18 COPD: No - Immunization History Immunization Up to Date: No - Suicide/Smoking/Psychosocial Hx Smoking Status: No Smoking History: Never smoked Have you smoked in the past 12 months: Yes Number of Cigarettes Smoked Daily: 3 If you are a former smoker, when did you quit?: 08/30 Hx Alcohol Use: No Drug/Substance Use Hx: No Substance Use Type: Alcohol Review of Systems - Review of Systems Able to Perform ROS?: Yes Comments:: GENERAL/CONSTITUTIONAL: No fever or chills. No weakness. HEAD, EYES, EARS, NOSE AND THROAT: No change in vision. No ear pain or discharge. No sore throat. SKIN: No rash. NEUROLOGIC: No headache, vertigo, loss of consciousness, or change in strength/ sensation. *Physical Exam - Vital Signs Last Vital Signs Temp Pulse Resp BP Pulse Ox 98.4 F 59 L 16 145/63 100 11/04/18 07:13 11/04/18 07:13 11/04/18 07:13 11/04/18 07:13 11/04/18 07:13 - Physical Exam Comments: GENERAL: Awake, alert, and fully oriented, in no acute distress HEAD: No signs of trauma EYES: PERRLA, EOMI, sclera anicteric, conjunctiva clear. +R subconjunctival hemorrhage. NEUROLOGICAL: Cranial nerves II through XII grossly intact. Normal speech, normal gait. Motor and sensation intact SKIN: Warm, Dry, normal turgor, no rashes or lesions noted. *DC/Admit/Observation/Transfer Diagnosis at time of Disposition: Subconjunctival hemorrhage Qualifiers: Laterality: right Qualified Code(s): H11.31 - Conjunctival hemorrhage, right eye - Discharge Dispostion Disposition: HOME Condition at time of disposition: Stable Decision to Admit order: No - Referrals - Patient Instructions Printed Discharge Instructions: DI for Subconjunctival Hemorrhage - Post Discharge Activity
== END 2018-11-04 07:40 | disposition home or self-care (01) ==
LOC: FER 07:12
DX: H11.31 Conjunctival hemorrhage, right eye (principal); Z87.891 Personal history of nicotine dependence
CPT/HCPCS: 99282-25

== ENCOUNTER 2019-08-29 15:54 | Emergency (ER) | payer BC ==
[2019-08-29 16:10] VITALS: BP 138/88; PULSE 79; TEMP 98.2; BMI 32.0
--- NOTE | 2019-08-29 16:18 | PDOC ---
History of Present Illness - General Chief Complaint: Laceration Stated Complaint: LACERATION RIGHT FACE Time Seen by Provider: 08/29/19 16:06 - History of Present Illness Initial Comments: 08/29/19 16:27 Chief complaint: Facial injury HPI: Patient fell last night, tripped on the sidewalk, struck right side of his face on the ground, sustaining a bruise and with bleeding. He washed the area and applied a Band-Aid. He is concerned that there is a skin injury needing stitches. Review of systems: Denies pain at the site. Denies injury to the eye. Denies blurred vision, double vision, headache, loss of consciousness, visual or focal neurologic symptoms, unsteadiness of gait. Denies neck pain or injury. Denies pain or injury to the chest abdomen spine pelvis or extremities Past medical history: Healthy male, no active medical or surgical problems Social/family history reviewed and noncontributory Physical exam: Alert and oriented well-developed well-nourished no acute distress cheerful and cooperative Afebrile, vital signs normal Head atraumatic. PERRLA 4 mm, fundi benign with sharp disc margins and good central venous pulsations. ENT clear. EOMs full without diplopia. Visual parmar intact to confrontation 2 cm contusion is present over the right cheek, and an abrasion as well as a 5 mm laceration is present centrally. The edges of the wound are well approximated. There is no deformity of the orbital rim, no appreciable tenderness to palpation, and no deformity. V2 sensation is intact. Neck without tenderness or deformity, full range of motion without pain. lungs clear. No chest wall or rib cage deformity or tenderness CV regular without murmur rub or gallop Abdomen soft nontender without mass organomegaly no CVAT Spine and pelvis without palpable or visible deformity or tenderness Extremities: No sign of trauma Impression: Contusion and superficial laceration of the right cheek. Wound edges are well approximated and healing. Plan: Wound was gently cleansed and irrigated with normal saline. Care was taken not to disturb the wound edges. The area was well dried. Bacitracin was applied lightly, and Steri-Strips were used to ensure continued closure of the wound. Wound care was discussed. Recheck if sign of infection. Fully ambulatory and in no pain or other distress at discharge. Past History - Past Medical History Allergies/Adverse Reactions: Allergies Allergy/AdvReac Type Severity Reaction Status Date / Time No Known Allergies Allergy Verified 08/29/19 16:14 Home Medications: Ambulatory Orders NK [No Known Home Medication] 11/04/18 Cardiac Disorders: Yes (A-FIB) COPD: No - Immunization History Immunization Up to Date: No - Psycho Social/Smoking Cessation Hx Smoking Status: No Smoking History: Never smoked Have you smoked in the past 12 months: Yes Number of Cigarettes Smoked Daily: 3 If you are a former smoker, when did you quit?: 08/30 'Breaking Loose' booklet given: 01/26/18 Hx Alcohol Use: No Drug/Substance Use Hx: No Substance Use Type: Alcohol *Physical Exam - Vital Signs Last Vital Signs Temp Pulse Resp BP Pulse Ox 98.2 F 79 18 138/88 99 08/29/19 15:54 08/29/19 15:54 08/29/19 15:54 08/29/19 15:54 08/29/19 15:54 Medical Decision Making - Medical Decision Making 08/29/19 16:32 Procedure note: Repair of laceration As noted, wound was repaired with Steri-Strips and the patient was instructed on wound care. Edges were well approximated and there was no sign of infection. There was no bleeding or other drainage. Discharge - Discharge Information Problems reviewed: Yes Clinical Impression/Diagnosis: Facial laceration Qualifiers: Encounter type: initial encounter Qualified Code(s): S01.81XA - Laceration without foreign body of other part of head, initial encounter Condition: Improved Disposition: HOME - Admission No - Follow up/Referral - Patient Discharge Instructions Patient Printed Discharge Instructions: DI for Laceration Repair Steri-Strips - Post Discharge Activity
== END 2019-08-29 16:23 | disposition home or self-care (01) ==
LOC: FER 15:54
DX: S01.81XA Laceration without foreign body of other part of head, initial encounter (principal); W01.0XXA Fall on same level from slipping, tripping and stumbling without subsequent striking against object, initial encounter; Y93.89 Activity, other specified; Y92.410 Unspecified street and highway as the place of occurrence of the external cause; I48.91 Unspecified atrial fibrillation; Z87.891 Personal history of nicotine dependence
CPT/HCPCS: 99282-25

== ENCOUNTER 2021-08-05 09:37 | Emergency (ER) | payer BC | END 2021-08-05 09:49 | LOC: JVIRT 09:37 | DX: R09.82 Postnasal drip (principal); Z11.52 Encounter for screening for COVID-19 | CPT/HCPCS: C9803; Q3014-GT; U0003; U0005 ==

== ENCOUNTER 2021-10-27 20:07 | Emergency (ER) | payer OTHER, BC ==
[2021-10-27 20:18] VITALS: TEMP 98; BMI 32.8
[2021-10-27] MEDS ORDERED: ACETAMINOPHEN 500 MG TABLET (FP) PO ONE (20:27)
[2021-10-27] MEDS ORDERED: KETOROLAC TROMETHAMINE 30 MG/1 ML VIAL IM ONE (20:27)
[2021-10-27] MEDS ORDERED: KETOROLAC TROMETHAMINE 30 MG/1 ML VIAL ONE (20:33)
[2021-10-27] MEDS ORDERED: ACETAMINOPHEN 325 MG TABLET (FP) ONE (20:33)
[2021-10-27 21:09] VITALS: BP 120/77; PULSE 94
== END 2021-10-27 21:18 | disposition home or self-care (01) ==
LOC: JER 20:07
PROC: 3E023GC Introduction of Other Therapeutic Substance into Muscle, Percutaneous Approach (ICD-10-PCS; principal; 2021-10-27)
DX: S46.912A Strain of unspecified muscle, fascia and tendon at shoulder and upper arm level, left arm, initial encounter (principal); Y04.8XXA Assault by other bodily force, initial encounter
CPT/HCPCS: 99284-25

== ENCOUNTER 2022-03-29 18:00 | Emergency (ER) | payer OTHER, BC ==
[2022-03-29 18:19] VITALS: BP 131/92; PULSE 107; RESP 19; TEMP 98.6; BMI 32.8
== END 2022-03-29 19:24 | disposition home or self-care (01) ==
LOC: JER 18:00 → JERFT 18:00
DX: S60.512A Abrasion of left hand, initial encounter (principal); Y04.8XXA Assault by other bodily force, initial encounter
CPT/HCPCS: 99281-25

== ENCOUNTER 2023-09-08 17:40 | Emergency (ER) | payer BC, OTHER ==
[2023-09-08 17:46] VITALS: BP 145/76; PULSE 95; RESP 20; TEMP 98; BMI 33.5
[2023-09-08] MEDS ORDERED: AMOX TR/POT CLAV 875MG/125MG TABLETS (FP) PO ONE (18:13)
[2023-09-08] MEDS ORDERED: AMOX TR/POT CLAV 875MG/125MG TABLETS (FP) ONE (18:22)
[2023-09-08] MEDS ORDERED: BACITRACIN ZINC 15 GM TUBE TOPICAL OINTMENT ONE (18:37)
[2023-09-08] MEDS ORDERED: BACITRACIN ZINC 15 GM TUBE TOPICAL OINTMENT TP ONE (18:40)
== END 2023-09-08 18:33 | disposition home or self-care (01) ==
LOC: JERFT 17:40
DX: S61.452A Open bite of left hand, initial encounter (principal); W54.0XXA Bitten by dog, initial encounter; Y93.01 Activity, walking, marching and hiking
CPT/HCPCS: 99283-25